=== PATIENT | female | born 1935 | race Caucasian/White ===

== ENCOUNTER → 2016-05-27 | Outpatient (CLI) | payer OTHER ==
[~2016-05-27] MED LIST: ASPIR 8181 MG PO; ATORVASTATIN CA40 MG PO; BYSTOLIC 5 MG5 M1 PO; IRBESARTAN300 MG PO; NABUMETONE 750750 M1 PO
== END ==
LOC: RAD 05:16
DX: Z12.31 Encounter for screening mammogram for malignant neoplasm of breast (principal)

== ENCOUNTER → 2017-05-11 | Outpatient (CLI) | payer OTHER ==
[~2017-05-11] MED LIST changes: +SPIRIVA INH; +TESSALON PERLE100 MG PO
== END ==
LOC: RAD 11:24
DX: J44.9 Chronic obstructive pulmonary disease, unspecified (principal); J98.11 Atelectasis

== ENCOUNTER 2017-05-20 22:22 | Emergency (ER) | payer OTHER ==
[~2017-05-20] VITALS: Ht 170.2 cm; Wt 104.8 kg
[~2017-05-20 22:22] MED LIST changes: -SPIRIVA INH; -TESSALON PERLE100 MG PO
[2017-05-20] MEDS ORDERED: SPIRIVA INH (22:40)
[2017-05-20] MEDS ORDERED: TESSALON PERLE100 MG PO (23:31)
[2017-05-20 23:49] VITALS: BP 153/71
== END 2017-05-20 23:50 | disposition home or self-care (01) ==
LOC: ER 22:22
DX: R07.89 Other chest pain (principal); F17.210 Nicotine dependence, cigarettes, uncomplicated; J44.9 Chronic obstructive pulmonary disease, unspecified; E78.00 Pure hypercholesterolemia, unspecified; Z98.890 Other specified postprocedural states

== ENCOUNTER → 2017-06-09 | Outpatient (CLI) | payer OTHER ==
[~2017-06-09] MED LIST changes: +SPIRIVA INH; +TESSALON PERLE100 MG PO
== END ==
LOC: RAD 01:05
DX: Z12.31 Encounter for screening mammogram for malignant neoplasm of breast (principal)

== ENCOUNTER 2017-10-06 10:00 | Emergency (ER) | payer OTHER ==
[~2017-10-06] VITALS: Ht 170.2 cm; Wt 79.4 kg
== END 2017-10-06 11:00 | disposition home or self-care (01) ==
LOC: ER 10:00
DX: S81.831A Puncture wound without foreign body, right lower leg, initial encounter (principal); J44.9 Chronic obstructive pulmonary disease, unspecified; E78.00 Pure hypercholesterolemia, unspecified; Z87.891 Personal history of nicotine dependence; W22.8XXA Striking against or struck by other objects, initial encounter; Y93.89 Activity, other specified; Y92.89 Other specified places as the place of occurrence of the external cause; Y99.8 Other external cause status

== ENCOUNTER → 2018-06-16 | Outpatient (CLI) | payer OTHER | LOC: RAD 06-10 13:22 | DX: Z12.31 Encounter for screening mammogram for malignant neoplasm of breast (principal) ==

== ENCOUNTER → 2018-11-26 | Outpatient (CLI) | payer OTHER | LOC: ULTRA 09:45 | DX: R60.0 Localized edema (principal); M79.604 Pain in right leg ==

== ENCOUNTER → 2019-05-12 | Outpatient (CLI) | payer OTHER | LOC: RAD 12:25 | DX: J98.4 Other disorders of lung (principal); J44.9 Chronic obstructive pulmonary disease, unspecified; M85.88 Other specified disorders of bone density and structure, other site; M47.814 Spondylosis without myelopathy or radiculopathy, thoracic region ==

== ENCOUNTER → 2019-06-21 | Outpatient (CLI) | payer OTHER | LOC: RAD 10:16 | DX: Z12.31 Encounter for screening mammogram for malignant neoplasm of breast (principal); E78.00 Pure hypercholesterolemia, unspecified; I25.10 Atherosclerotic heart disease of native coronary artery without angina pectoris ==

== ENCOUNTER → 2019-10-05 | Outpatient (CLI) | payer OTHER | LOC: SJCVC 16:58 | DX: I44.0 Atrioventricular block, first degree (principal); I25.10 Atherosclerotic heart disease of native coronary artery without angina pectoris; E78.00 Pure hypercholesterolemia, unspecified; I10 Essential (primary) hypertension; I42.9 Cardiomyopathy, unspecified; I73.9 Peripheral vascular disease, unspecified; J44.9 Chronic obstructive pulmonary disease, unspecified; I87.2 Venous insufficiency (chronic) (peripheral) ==

== ENCOUNTER → 2020-06-07 | Outpatient (CLI) | payer OTHER | LOC: SJCVCIMAG 05-23 12:12 | PROVIDERS: ATTEND Internal Medicine Cardiovascular Disease | DX: I35.1 Nonrheumatic aortic (valve) insufficiency (principal); R94.31 Abnormal electrocardiogram [ECG] [EKG]; I44.7 Left bundle-branch block, unspecified; I25.10 Atherosclerotic heart disease of native coronary artery without angina pectoris; I10 Essential (primary) hypertension; E78.00 Pure hypercholesterolemia, unspecified; I42.9 Cardiomyopathy, unspecified; I73.9 Peripheral vascular disease, unspecified; J44.9 Chronic obstructive pulmonary disease, unspecified; I87.2 Venous insufficiency (chronic) (peripheral); Z90.49 Acquired absence of other specified parts of digestive tract; Z90.710 Acquired absence of both cervix and uterus; Z98.890 Other specified postprocedural states; Z79.82 Long term (current) use of aspirin; Z79.899 Other long term (current) drug therapy; Z86.16 Personal history of COVID-19; Z87.891 Personal history of nicotine dependence; Z82.49 Family history of ischemic heart disease and other diseases of the circulatory system ==

== ENCOUNTER → 2021-01-16 | Outpatient (CLI) | payer OTHER | LOC: RAD 12:56 | PROVIDERS: ATTEND Internal Medicine | DX: J96.11 Chronic respiratory failure with hypoxia (principal); J44.9 Chronic obstructive pulmonary disease, unspecified; M47.814 Spondylosis without myelopathy or radiculopathy, thoracic region; I70.0 Atherosclerosis of aorta ==

== ENCOUNTER → 2021-02-13 | Outpatient (CLI) | payer OTHER | LOC: ULTRA 15:41 | PROVIDERS: ATTEND Nurse Practitioner | DX: R60.0 Localized edema (principal) ==

== ENCOUNTER → 2021-03-07 | Outpatient (CLI) | payer OTHER ==
[~2021-03-07] MED LIST changes: +ALLOPURINOL 10100 M1 PO; +AMIODARONE HCL400 MG PO; +ANORO ELLIPTA1 EACH INH; +DEMADEX20 MG PO; +EDARBI40 MG PO; +TOPROL XL100 MG PO; +VITAMIN D350 MC3 PO; +XARELTO20 MG PO
== END ==
LOC: SJCVC 10:38
PROVIDERS: ATTEND Internal Medicine Cardiovascular Disease
DX: R94.31 Abnormal electrocardiogram [ECG] [EKG] (principal); I44.7 Left bundle-branch block, unspecified; I47.1 Supraventricular tachycardia; I48.92 Unspecified atrial flutter; I11.0 Hypertensive heart disease with heart failure; I50.9 Heart failure, unspecified; E78.00 Pure hypercholesterolemia, unspecified; I25.10 Atherosclerotic heart disease of native coronary artery without angina pectoris; I42.9 Cardiomyopathy, unspecified; I87.2 Venous insufficiency (chronic) (peripheral); J44.9 Chronic obstructive pulmonary disease, unspecified; I73.9 Peripheral vascular disease, unspecified; G47.33 Obstructive sleep apnea (adult) (pediatric); Z86.16 Personal history of COVID-19; Z99.81 Dependence on supplemental oxygen; Z79.82 Long term (current) use of aspirin; Z72.89 Other problems related to lifestyle; Z87.891 Personal history of nicotine dependence

== ENCOUNTER → 2021-03-11 | Outpatient (CLI) | payer OTHER | END | disposition home or self-care (01) | LOC: SJCVCIMAG 11:38 | PROVIDERS: ATTEND Internal Medicine Cardiovascular Disease | DX: R94.31 Abnormal electrocardiogram [ECG] [EKG] (principal); I47.1 Supraventricular tachycardia; I08.3 Combined rheumatic disorders of mitral, aortic and tricuspid valves; I48.92 Unspecified atrial flutter; I11.0 Hypertensive heart disease with heart failure; I50.9 Heart failure, unspecified; E78.00 Pure hypercholesterolemia, unspecified; I77.9 Disorder of arteries and arterioles, unspecified; I87.2 Venous insufficiency (chronic) (peripheral); I73.9 Peripheral vascular disease, unspecified; I25.10 Atherosclerotic heart disease of native coronary artery without angina pectoris; J44.9 Chronic obstructive pulmonary disease, unspecified; D68.59 Other primary thrombophilia; G47.33 Obstructive sleep apnea (adult) (pediatric); Z86.16 Personal history of COVID-19; Z79.82 Long term (current) use of aspirin; Z79.899 Other long term (current) drug therapy; Z87.891 Personal history of nicotine dependence; Z72.89 Other problems related to lifestyle ==

== ENCOUNTER → 2021-03-14 | Outpatient (CLI) | payer OTHER ==
[~2021-03-14] VITALS: Ht 170.2 cm; Wt 103.9 kg
[2021-03-14 07:24] VITALS: BP 107/65
--- NOTE | 2021-03-14 08:28 | EKG ---
[address] [place] [address] ELECTROCARDIOGRAM REPORT Name: WINIFRED CHAHAL Room #: REG CLI [facility]#: [id number] Admission: 03/14/21 Attend Phys: Randy Fay MD, Discharge: Date of : 37 Report #: [id number] [facility] Test Date: 2021-03-14 Test Time: 07:19:32 Pat Name: WINIFRED CHAHAL Department: Room: Gender: F Greenhouse Or Nursery Transplanter: FSCHWALBE : 1935 Requested By: Randy Fay Order Number: [id number] MD: Jefferson Aguilera Measurements Intervals [place] Rate: 126 P: NC: QRS: 26 QRSD: 106 T: -88 QT: 348 QTc: 504 Interpretive Statements Atrial flutter with variable AV conduction Nonspecific intraventricular conduction delay Compared to ECG 07/28/2001 11:26:40 Atrial flutter has replaced sinus bradycardia Electronically Signed On 03-14-2021 8:28:03 COMMUNICATION INSTRUCTOR by Jefferson Aguilera [email or web address] <ELECTRONICALLY SIGNED> By: Jefferson Aguilera MD, [facility] 03/14/2128 8 8 Jefferson Aguilera MD, FACC /EPI
--- NOTE | 2021-03-14 09:26 | TEE ---
[facility] [place] [address] [place] [address] TRANSESOPHAGEAL ECHOCARDIOGRAM Name: WINIFRED CHAHAL Room #: REG [facility]#: [id number] Admission: 03/14/21 Attend Phys: Randy Fay MD, Discharge: Date of : 37 Report #: [id number] THIS REPORT FOR: cc: Torres Copeland MD, Neal A. MD Santiago, Patrick MD [facility] ~ APPROVED REPORT Study performed: 03/14/2021 08:36:00 EXAM: Comprehensive 2D, Doppler, and color-flow Echocardiogram Patient Location: Out-Patient Room #: 9 Status: routine BSA: 2.14 HR: 104 bpm BP: 136/79 mmHg Rhythm: Atrial Flutter Other Information Study Quality: Good Indications Atrial flutter Echo Enhancing Agent Indication: Rule out Shunt Agent(s) / Amount(s) Used: Agitated Saline 7 cc Procedure After obtaining informed consent, patient underwent transesophageal echo in the General Practitioner Holding. Type of Sedation : Conscious Sedation Sedation was administered by Nurse. Sedation start time: 839 Case end Time: 844 Sedation was achieved intravenously with: Versed (2.5mg) Fentanyl (50mcg) Transesophageal probe was inserted and advanced into esophagus without difficulty by Randy Fay MD. Echo enhancement indication: R/O Septal defect. Echo enhancement agent administered: Agitated Saline The VERONA was performed without complications. Synchronized Cardioversion acheived with 100 Joules after 1 [facility] [address] [place] [address] TRANSESOPHAGEAL ECHOCARDIOGRAM Name: WINIFRED CHAHAL Room #: REG [facility]#: [id number] Admission: 03/14/21 Attend Phys: Randy Fay, Discharge: Date of : 37 Report #: [id number] attempt(s). Rhythm following Synchronized Cardioversion: Normal Sinus Rhythm Throughout the procedure, the blood pressure, pulse oximetry, cardiac rhythm, and rate were monitored. The patient tolerated the procedure without adverse effects. Recovery from conscious sedation was uneventful and vital signs were stable. Left Ventricle The left ventricle is normal size. Mild concentric left ventricular hypertrophy. Left ventricular ejection fraction is moderate to severely decreased. LVEF is 30%. Right Ventricle The right ventricle is normal size. The right ventricular systolic function is normal. Atria Left atrium is dilated. Injection of contrast documented no interatrial shunt. The right atrium size is normal. Aortic Valve The aortic valve is normal in structure. Aortic valve is calcified. Trace aortic regurgitation. There is no aortic valvular stenosis. Mitral Valve The mitral valve is normal in structure. Trace to mild mitral regurgitation. No evidence of mitral valve stenosis. Tricuspid Valve The tricuspid valve is normal in structure. There is no tricuspid valve regurgitation noted. Pulmonic Valve The pulmonary valve is normal in structure. There is no pulmonic valvular regurgitation. Great Vessels The aortic root is normal in size. Pericardium There is no pericardial effusion. <Conclusion> Atrial flutter at baseline [facility] [address] [place] [address] TRANSESOPHAGEAL ECHOCARDIOGRAM Name: WINIFRED CHAHAL Room #: REG [facility]#: [id number] Admission: 03/14/21 Attend Phys: Randy Fay, Discharge: Date of : 37 Report #: [id number] Consent was obtained Timeout was performed After appropriate sedation esophageal probe was advanced without difficulty Normal left ventricle size/wall thickness, global hypokinesis ejection fraction-30% Normal right ventricle size/function Moderate left atrial enlargement Left atrial appendage, moderate size, no obvious mass or clot detected Aortic valve trileaflet, mild calcification without stenosis, trace AI Mild mitral valve insufficiency No tricuspid valve insufficiency No evidence of ASD/VSD by color flow/bubble study Minimal calcification throughout the aorta Patient was successfully cardioverted to sinus rhythm after 100 J/biphasic mode Patient tolerated procedure well Twelve-lead ECG pending <ELECTRONICALLY SIGNED> By: Randy Fay MD, FACC 03/14/21925 5 5 Randy Fay MD, FACC /INF
--- NOTE | 2021-03-14 10:24 | EKG ---
[address] [place] [address] ELECTROCARDIOGRAM REPORT Name: WINIFRED CHAHAL [id number] Admission: 03/14/21 Attend Phys: Randy Fay MD, Discharge: Date of : 37 Report #: [id number] [facility] Test Date: 2021-03-14 Test Time: 09:08:35 Pat Name: WINIFRED CHAHAL Department: Room: Gender: F Staff Consultant: FSCHWALBE : 1935 Requested By: Randy Fay Order Number: [id number] MD: Randy Fay Measurements Intervals [place] Rate: 62 P: 85 MA: 233 QRS: 1 QRSD: 106 T: -12 QT: 428 QTc: 435 Interpretive Statements Sinus rhythm LVH with secondary repolarization abnormality Compared to ECG 03/14/2021 07:19:32 First degree AV block now present Left ventricular hypertrophy now present Early repolarization now present Atrial flutter no longer present Intraventricular conduction delay no longer present Electronically Signed On 03-14-2021 10:23:59 WRITING TUTOR by Randy Fay [email or web address] <ELECTRONICALLY SIGNED> By: Randy Fay MD, FACC 03/14/21 1023 7 0908 Randy Fay MD, FAC /EPI
== END | disposition home or self-care (01) ==
LOC: CATH 06:35
PROVIDERS: ATTEND Internal Medicine
DX: I48.92 Unspecified atrial flutter (principal); I08.0 Rheumatic disorders of both mitral and aortic valves; I11.0 Hypertensive heart disease with heart failure; I50.9 Heart failure, unspecified; I25.5 Ischemic cardiomyopathy; E78.00 Pure hypercholesterolemia, unspecified; I25.10 Atherosclerotic heart disease of native coronary artery without angina pectoris; I73.9 Peripheral vascular disease, unspecified; J44.9 Chronic obstructive pulmonary disease, unspecified; E66.9 Obesity, unspecified; Z98.890 Other specified postprocedural states; Z79.899 Other long term (current) drug therapy; Z79.01 Long term (current) use of anticoagulants; Z82.49 Family history of ischemic heart disease and other diseases of the circulatory system

== ENCOUNTER → 2021-04-02 | Outpatient (CLI) | payer OTHER ==
[~2021-04-02] VITALS: Ht 170.2 cm; Wt 102.0 kg
[2021-04-02 07:44] VITALS: BP 138/74
--- NOTE | 2021-04-02 13:25 | EKG ---
[place] [address] [facility] [email or web address] [address] ELECTROCARDIOGRAM REPORT Name: WINIFRED CHAHAL [facility] [id number] Admission: 04/02/21 Attend Phys: Randy Fay MD, Discharge: Date of : 37 Report #: [id number] [facility] Test Date: 2021-04-02 Test Time: 08:26:41 Pat Name: WINIFRED CHAHAL Department: Room: Gender: F Quality Improvement Coordinator (Rn): YAO : 1935 Requested By: Randy Fay Order Number: [id number] MD: Randy Fay Measurements Intervals [place] Rate: 48 P: 76 [place]: 217 QRS: 10 QRSD: 105 T: 44 QT: 497 QTc: 445 Interpretive Statements Sinus bradycardia Atrial premature complex Borderline repolarization abnormality Compared to ECG 03/14/2021 09:08:35 Atrial premature complex(es) now present Sinus rhythm no longer present Left ventricular hypertrophy no longer present Electronically Signed On 04-02-2021 13:24:53 INFRASTRUCTURE CONSULTANT by Randy Fay [email or web address] <ELECTRONICALLY SIGNED> By: Randy Fay MD, [facility] 04/02/21 1324 5 5 Randy Fay MD, [facility] /EPI
--- NOTE | 2021-04-04 14:14 | CATHLAB ---
[facility] [address] [address] INVASIVE PROCEDURE REPORT Name: WINIFRED CHAHAL Room #: REG [facility].#: [id number] Admission: 04/02/21 Attend Phys: Randy Fay MD, Discharge: Date of : 37 Report #: [id number] THIS REPORT FOR: cc: Torres Copeland MD, Neal A. MD Santiago, Patrick MD [facility] ~ DATE OF SERVICE: 04/02/2021 ELECTRICAL CARDIOVERSION Consent was obtained. A timeout was performed. The patient was sedated with a total of 3 mg of Versed and 50 mg of fentanyl. Electrical patches were previously placed. The patient was successfully cardioverted to sinus bradycardia 49-50 BPM with 100 joules x 1 in a biphasic mode. The patient tolerated the procedure well. A 12-lead ECG pending. <ELECTRONICALLY SIGNED> By: Randy Fay MD, FACC 04/04/21 1414 0742 0752 Randy Fay MD, FACC /nt
== END | disposition home or self-care (01) ==
LOC: CATH 06:46
PROVIDERS: ATTEND Internal Medicine
DX: I48.91 Unspecified atrial fibrillation (principal); R06.00 Dyspnea, unspecified; I48.92 Unspecified atrial flutter; I11.0 Hypertensive heart disease with heart failure; I50.9 Heart failure, unspecified; E78.00 Pure hypercholesterolemia, unspecified; I25.5 Ischemic cardiomyopathy; J44.9 Chronic obstructive pulmonary disease, unspecified; I25.10 Atherosclerotic heart disease of native coronary artery without angina pectoris; I73.9 Peripheral vascular disease, unspecified; Z98.890 Other specified postprocedural states; Z79.899 Other long term (current) drug therapy; Z90.49 Acquired absence of other specified parts of digestive tract; Z90.710 Acquired absence of both cervix and uterus; Z87.891 Personal history of nicotine dependence

== ENCOUNTER → 2021-04-09 | Outpatient (CLI) | payer OTHER | LOC: SJCVC 09:43 | PROVIDERS: ATTEND Internal Medicine Cardiovascular Disease | DX: R94.31 Abnormal electrocardiogram [ECG] [EKG] (principal); I48.92 Unspecified atrial flutter; I25.10 Atherosclerotic heart disease of native coronary artery without angina pectoris; I25.5 Ischemic cardiomyopathy; I77.9 Disorder of arteries and arterioles, unspecified; I10 Essential (primary) hypertension; E78.00 Pure hypercholesterolemia, unspecified; J44.9 Chronic obstructive pulmonary disease, unspecified; G47.33 Obstructive sleep apnea (adult) (pediatric); Z82.49 Family history of ischemic heart disease and other diseases of the circulatory system; F17.210 Nicotine dependence, cigarettes, uncomplicated; Z88.8 Allergy status to other drugs, medicaments and biological substances; Z79.82 Long term (current) use of aspirin; Z79.899 Other long term (current) drug therapy ==